=== PATIENT | male | born 1975 | race Caucasian/White ===

== ENCOUNTER 2022-09-19 15:15 | Outpatient (CLI) | payer OTHER | END 2022-09-19 15:16 | disposition home or self-care (01) | LOC: BICCT 15:15 | PROVIDERS: ATTEND Family Medicine | DX: R94.2 Abnormal results of pulmonary function studies (principal) | CPT/HCPCS: 71260 ==

== ENCOUNTER 2023-06-15 14:10 | Outpatient (CLI) | payer OTHER | END 2023-06-15 14:11 | disposition home or self-care (01) | LOC: BICCT 14:10 | PROVIDERS: ATTEND Family Medicine | DX: R94.2 Abnormal results of pulmonary function studies (principal); R91.8 Other nonspecific abnormal finding of lung field; J98.4 Other disorders of lung | CPT/HCPCS: 71250 ==